=== PATIENT | male | born 1975 | race Caucasian/White ===

== ENCOUNTER 2017-08-11 15:42 | Emergency (ER) | payer SELFPAY ==
[2017-08-11 15:59] VITALS: RESP 18; TEMP 98
[2017-08-11 19:01] VITALS: O2SAT 100
--- NOTE | 2017-08-11 19:16 | ED PDOC ---
Arrival/HPI - General Historian: Patient <Zaid Rutledge - Last Filed: 08/12/17 02:16> <Nacho Valdez - Last Filed: 08/12/17 04:50> - General Chief Complaint: Alcohol Ingestion Time Seen by Provider: 08/11/17 16:27 - History of Present Illness Narrative History of Present Illness (Text): 08/11/17 19:03 40yo male who is well known to the Emergency department for alcoholic abuse bib EMS for alcohol intoxication. PEr the EMS, patient was found sleeping on the street. Patient was lethargic, sleeping on arrival. (MatyZaid A) Past Medical History - Provider Review Nursing Documentation Reviewed: Yes - Psychiatric Hx Substance Use: No <Zaid Rutledge - Last Filed: 08/12/17 02:16> Family/Social History - Physician Review Nursing Documentation Reviewed: Yes Family/Social History: Unknown Family HX Smoking Status: Unknown If Ever Smoked Hx Alcohol Use: Yes Hx Substance Use: No <Zaid Rutledge A - Last Filed: 08/12/17 02:16> Allergies/Home Meds <Zaid Rutledge - Last Filed: 08/12/17 02:16> <Nacho Valdez - Last Filed: 08/12/17 04:50> Allergies/Adverse Reactions: Allergies Unobtainable Allergy (Verified 08/11/17 15:46) Home Medications: Home Meds Medication Instructions Recorded Confirmed Unobtainable 08/11/17 08/11/17 Review of Systems - Review of Systems Systems not reviewed;Unavailable: Intoxicated <Zaid Rutledge - Last Filed: 08/12/17 02:16> Physical Exam Vital Signs Reviewed: Yes Temperature: Afebrile Blood Pressure: Normal Pulse: Regular Respiratory Rate: Normal Appearance: Positive for: Well-Appearing, Non-Toxic, Comfortable Pain Distress: None Mental Status: Positive for: Lethargic (Sleeping) Finger Stick Blood Glucose: 96 - Systems Exam Head: Present: Atraumatic, Normocephalic Pupils: Present: PERRL Extroacular Muscles: Present: EOMI Conjunctiva: Present: Normal Mouth: Present: Moist Mucous Membranes Neck: Present: Normal Range of Motion Respiratory/Chest: Present: Clear to Auscultation, Good Air Exchange. No: Respiratory Distress, Accessory Muscle Use Cardiovascular: Present: Regular Rate and Rhythm, Normal S1, S2. No: Murmurs Abdomen: No: Tenderness, Distention, Peritoneal Signs Back: Present: Normal Inspection Upper Extremity: Present: Normal Inspection. No: Cyanosis, Edema Lower Extremity: Present: Normal Inspection. No: Edema Neurological: Present: GCS=15, CN II-XII Intact, Speech Normal Skin: Present: Warm, Dry, Normal Color. No: Rashes Psychiatric: Present: Alert, Oriented x 3, Normal Insight, Normal Concentration <Zaid Rutledge - Last Filed: 08/12/17 02:16> Vital Signs Temp Pulse Resp BP Pulse Ox 08/12/17 04:30 83 18 128/85 100 08/11/17 23:00 85 18 126/82 100 08/11/17 17:42 84 18 128/79 100 08/11/17 15:50 98 F 98 H 18 120/52 L 97 Medical Decision Making <Zaid Rutledge - Last Filed: 08/12/17 02:16> <Nacho Valdez - Last Filed: 08/12/17 04:50> ED Course and Treatment: 08/12/17 02:05 Pt continue to sleep in Emergency department. Hemodynamically stable. He will be observed pending sobriety. Case was endorsed to Dr. Valdez to re asses and dispo pt. (Zaid Rutledge) 08/12/17 04:49 Pt. is awake alert sober with steady gait. (Nacho Valdez) - PA / DIRECTOR [facility] / Resident Statement / has reviewed & agrees with the documentation as recorded. GALO has examined the patient and agrees with the treatment plan. <Nacho Valdez - Last Filed: 08/12/17 04:50> Disposition/Present on Arrival - Present on Arrival Any Indicators Present on Arrival: No History of DVT/PE: No History of Uncontrolled Diabetes: No Urinary Catheter: No History of Decub. Ulcer: No History Surgical Site Infection Following: None - Disposition Have Diagnosis and Disposition been Completed?: Yes <Zaid Rutledge - Last Filed: 08/12/17 02:16> - Present on Arrival Any Indicators Present on Arrival: No - Disposition Have Diagnosis and Disposition been Completed?: Yes Disposition Time: 04:48 Patient Plan: Discharge <Nacho Valdez - Last Filed: 08/12/17 04:50> - Disposition Diagnosis: Alcohol intoxication Disposition: HOME/ ROUTINE Condition: STABLE Referrals: Alcoholics Anonymous [Outside] - Follow up with primary Forms: [employer] (Slovak)
[2017-08-12 04:48] VITALS: BP 128/85; PULSE 83
== END 2017-08-12 04:54 | disposition home or self-care (01) ==
LOC: ED 15:42
DX: F10.129 Alcohol abuse with intoxication, unspecified (principal)